=== PATIENT | female | born 1985 | race African-American/Black ===

== ENCOUNTER 2017-12-16 17:02 | Emergency (ER) | payer OTHER ==
--- NOTE | 2017-12-16 17:10 | PDOC ---
Rapid Medical Evaluation Time Seen by Provider: 12/16/17 17:06 Medical Evaluation: 12/16/17 17:06 I have performed a brief in-person evaluation of this patient. 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 Discharge Disposition - Diagnosis Low back pain - Referrals - Patient Instructions - Post Discharge Activity
[2017-12-16] MEDS ORDERED: ACETAMINOPHEN 325 MG TABLET (FP) PO ONE (17:12)
[2017-12-16 17:16] VITALS: BP 126/86; PULSE 112; TEMP 98.1; BMI 39.9
[2017-12-16] MEDS ORDERED: IBUPROFEN 600 MG TABLET (FP) PO ONE ×2 (17:50→17:55)
--- NOTE | 2017-12-16 17:54 | PDOC ---
History of Present Illness - General Chief Complaint: Back Pain Stated Complaint: BACK PAIN Time Seen by Provider: 12/16/17 17:06 History Source: Patient Exam Limitations: No Limitations - History of Present Illness Initial Comments: 12/16/17 17:49 Patient came for evaluation of low to mid back pain. 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 felt fine after the incident however over this past hours had a worsening of spasm and tenderness to her mid back and waistline where it's difficult for her to sit. Denies numbness or tingling to toes or hands, no history of back injury. Occurred: reports: this afternoon Severity: reports: mild Pain Location: reports: back Method of Injury: Yes: other (HEAVY ) Modifying Factors: improves with: None Loss of Consciousness: no loss of consciousness Associated Symptoms (Fall): denies symptoms Past History - Past Medical History Allergies/Adverse Reactions: Allergies Allergy/AdvReac Type Severity Reaction Status Date / Time No Known Allergies Allergy Verified 12/16/17 17:07 Home Medications: Ambulatory Orders No Home Medications 0 dose .ROUTE UTDICT 06/03/13 Cyclobenzaprine HCl 10 mg PO Q8H PRN #14 tablet 12/16/17 COPD: No Other medical history: DENIES. - Suicide/Smoking/Psychosocial Hx Smoking Status: No Smoking History: Current some day smoker Have you smoked in the past 12 months: Yes Number of Cigarettes Smoked Daily: 0 Information on smoking cessation initiated: No *Physical Exam - Vital Signs Last Vital Signs Temp Pulse Resp BP Pulse Ox 98.1 F 112 H 19 126/86 99 12/16/17 17:07 12/16/17 17:07 12/16/17 17:07 12/16/17 17:07 12/16/17 17:07 - Physical Exam General Appearance: Yes: Nourished, Appropriately Dressed, Apparent Distress HEENT: positive: IFRAH, Normal ENT Inspection, TMs Normal, Pharynx Normal Neck: positive: Supple. negative: Lymphadenopathy (R), Lymphadenopathy (L) Respiratory/Chest: positive: Lungs Clear, Normal Breath Sounds Gastrointestinal/Abdominal: positive: Soft. negative: Tender Musculoskeletal: positive: Decreased Range of Motion (mild decreased range of motion with flexion and extension at waist, has palpable spasm bilaterally worse on the left than the right extending from lower trapezius and through lumbar paravertebral spinous muscles. No crepitus or step-offs along spine, neurovascular intact to feet.), Muscle Spasm Extremity: positive: Normal Capillary Refill, Normal Range of Motion Integumentary: positive: Dry, Warm, Pale Neurologic: positive: paste up artist II-XII NML intact, Fully Oriented, Alert, Normal Mood/ Affect, Normal Response, Motor Strength 02/20 ED Treatment Course - Medications Given in the ED: ED Medications Discontinued Medications Generic Name Dose Route Start Last Admin Trade Name Freq PRN Reason Stop Dose Admin Acetaminophen 975 mg 12/16/17 17:12 12/16/17 17:16 Tylenol - PO 12/16/17 17:13 975 mg ONCE ONE Administration Progress Note - Progress Note Progress Note: Back strain, will treat with NSAIDs and cyclobenzaprine *DC/Admit/Observation/Transfer Diagnosis at time of Disposition: Low back pain Qualifiers: Chronicity: acute Back pain laterality: bilateral Sciatica presence: without sciatica Qualified Code(s): M54.5 - Low back pain - Discharge Dispostion Disposition: HOME Condition at time of disposition: Stable Admit: No - Prescriptions Prescriptions: Cyclobenzaprine HCl 10 mg PO Q8H PRN #14 tablet PRN Reason: spasm - Referrals Referrals: Kristina Abreu [Primary Care Provider] - - Patient Instructions Printed Discharge Instructions: DI for Low Back Pain Additional Instructions: Rest, no heavy lifting or exercise until pain is resolved Hot soaks to neck and low back as often as possible/hot showers or Jacuzzis No massage or therapy until spasm is gone Continue ibuprofen 2-200 mg tablets every 6 hours for the next 3 days then as needed for pain and swelling Cyclobenzaprine 1-10mg every 8 hours as needed for spasm If not significant improvement within 24 hours with medication and rest regime, followup with private physician for change in medications and /or therapy. - Post Discharge Activity Forms/Work/School Notes: Back to Work
[2017-12-16] MEDS ORDERED: CYCLOBENZAPRINE HCL 10 MG TABLET (FP) ONE (18:18)
== END 2017-12-16 18:14 | disposition home or self-care (01) ==
LOC: JERFT 17:02
DX: M54.5 Low back pain (principal); X50.0XXA Overexertion from strenuous movement or load, initial encounter; X50.9XXA Other and unspecified overexertion or strenuous movements or postures, initial encounter; Y93.F2 Activity, caregiving, lifting; Y92.89 Other specified places as the place of occurrence of the external cause; Y99.0 Civilian activity done for income or pay
CPT/HCPCS: 99281-25

== ENCOUNTER 2018-10-14 23:11 | Emergency (ER) | payer OTHER ==
[~2018-10-14 23:11] MED LIST: LIDOCAINE PATCH REMOVAL MC SCH
[2018-10-14 23:27] VITALS: BMI 31.6
--- NOTE | 2018-10-14 23:43 | PDOC ---
History of Present Illness - General Chief Complaint: Back Pain Stated Complaint: MONTANEZ 11B Time Seen by Provider: 10/14/18 23:38 History Source: Patient Exam Limitations: No Limitations - History of Present Illness Initial Comments: 10/14/18 23:38 33YOF with chronic low back pain 2/2 multilevel lumbar disc disease from work- related injury in 11/2017, had MRI 12/2017, follows with neurosurgeon, who was BIBEMS tonight for exacerbated chronic low back pain now radiating down her entire LLE and slightly down her RLE. She has not struggled with shooting leg pain like this before. Notes that about a week ago, she twisted to the left accidentally and aggravated the back pain. Initially it was severe but improved , now worse over the past 3 days and she notes being unable to walk. She has left lateral leg numbness/tingling, no urinary or bowel incontinence, saddle anesthesia, LOC, headache, neck pain, vision changes, lightheadedness, new abdominal pain, leg weakness, or other symptoms. Past History - Past Medical History Allergies/Adverse Reactions: Allergies Allergy/AdvReac Type Severity Reaction Status Date / Time No Known Allergies Allergy Verified 10/14/18 23:25 Home Medications: Ambulatory Orders No Home Medications 0 dose .ROUTE UTDICT 06/03/13 Amoxicillin/Potassium Clav [Augmentin 875-125 Tablet] 1 each PO BID 7 Days #14 tablet 06/26/18 Bacitracin/Polymyxin B Sulfate [Bacitracin-Polymyxin Ointment] 15 gm TP ACDIN 7 Days #30 oint...g. 06/26/18 Acetaminophen [Tylenol] 650 mg PO QID PRN #28 tablet 10/15/18 Cyclobenzaprine HCl [Flexeril 10 mg] 10 mg PO BID PRN #20 tablet 10/15/18 Ibuprofen [Motrin -] 600 mg PO QID #28 tablet 10/15/18 COPD: No DVT: No - Suicide/Smoking/Psychosocial Hx Smoking Status: No Smoking History: Never smoked Have you smoked in the past 12 months: No Number of Cigarettes Smoked Daily: 0 Information on smoking cessation initiated: No Hx Alcohol Use: No Drug/Substance Use Hx: No Substance Use Type: None Review of Systems - Review of Systems Able to Perform ROS?: Yes Comments:: GEN: no fever, chills, malaise, generalized weakness, or weight change HEENT: no ear pain, sore throat, vision change, or eye pain CV: no chest pain, palpitations, lightheadedness, syncope, or edema RESP: no cough, wheezing, or SOB GI: no abdominal pain, nausea, vomiting, diarrhea, constipation, or white/black/ bloody stool : no dysuria, hematuria, incontinence, retention, bleeding, or discharge MSK: back pain, LLE sciatica, no neck pain, no muscle weakness/pain, or joint swelling/pain NEURO: no headache, seizure, vertigo, numbness, tingling, or focal weakness PSYCH: no substance use, no behavior change SKIN: no jaundice, no rash ROS otherwise negative except as noted in HPI *Physical Exam - Vital Signs Last Vital Signs Temp Pulse Resp BP Pulse Ox 97.6 F 80 18 108/62 99 10/14/18 23:25 10/14/18 23:25 10/14/18 23:25 10/14/18 23:25 10/14/18 23:25 - Physical Exam Comments: 10/15/18 00:26 GENERAL: a bit uncomfortable but otherwise well-appearing, A/Ox4, no distress, answers questions appropriately, laying on right side in ED stretcher HEENT: PERRLA, EOMI, moist mucous membranes NECK/BACK: lumbar and sacral diffuse midline ttp, otherwise no spinal ttp, no spinal stepoff or deformity, no hematoma, neck supple CARDIOVASCULAR: regular rate/rhythm, normal S1S2, no MGR, strong peripheral pulses, capillary refill <2 seconds, extremities wwp, no edema LUNGS/RESPIRATORY: no respiratory distress, CTAB GI/ABDOMEN: symmetric ivxy-ct-iabn, normoactive BS, soft, no ttp, no midline pulsatile masses : no CVA tenderness EXTREMITIES: no muscle atrophy, no acute deformity, no edema SKIN: warm and dry, no pallor, no jaundice, no rash, no bruising, no skin breakdown, no cuts, no lesions NEUROLOGICAL: GCS 15, CN II-XII grossly intact, 5/5 strength proximally and distally including BLE, no facial droop, gait not tested initially Moderate Sedation - Procedure Monitoring Vital Signs: Procedure Monitoring Vital Signs Temperature 97.6 F 10/14/18 23:25 Pulse Rate 80 10/14/18 23:25 Respiratory Rate 18 10/14/18 23:25 Blood Pressure 108/62 10/14/18 23:25 O2 Sat by Pulse Oximetry (%) 99 10/14/18 23:25 Medical Decision Making - Medical Decision Making 10/14/18 23:44 Pt with h/o with chronic back pain p/w acute exacerbation of same chronic back pain but now with LLE sciatica. No new red flag symptoms (see HPI). Initial Vital Signs Temp Pulse Resp BP Pulse Ox 97.6 F 80 18 108/62 99 10/14/18 23:25 10/14/18 23:25 10/14/18 23:25 10/14/18 23:25 10/14/18 23:25 Exam: As noted in Physical Exam section. DDX IBNLT: DDD, DJD, osteophyte, compression fxr, other vertebral or spinous process fxr; much LL malignancy (i.e. multiple myeloma), spinal epidural abscess , epidural hematoma, meningitis, or other more concerning etiology. W/U ordered: urine hCG to determine if she can have NSAIDs TX ordered: valium 2 mg PO 10/15/18 02:09 Patient received partial relief with valium. She will not give urine sample for hCG. States she knows she is not , just ended her normal LMP. Requests NSAIDs and understands normal protocol is to check first. She understands the risks of NSAIDs, insists not , requests Toradol. I placed the order for IM Toradol 10/15/18 03:33 Patient walking to vending machine and bathroom. States pain is much better, still present, requests Tylenol. I have placed order for 975 mg Tylenol PO with Maalox at her request. Will re-assess after Tylenol, at this time the patient does feel comfortable going home. She states she will be able to f/u with PCP and neurosurgery. She does request new neurosurgeon and I have placed referral info. Repeat VS: DISCHARGE The Pt has gotten significant relief of symptoms while in the ED. They are appropriate for discharge with close outpatient follow up. The Pt is comfortable with this plan and will follow up with their primary care provider in 1-3 days. They are counseled on importance of proactive pain management and neurosurgery follow up. Specific return precautions are discussed and they will come back to the ER if necessary. *DC/Admit/Observation/Transfer Diagnosis at time of Disposition: Low back pain Qualifiers: Chronicity: unspecified Back pain laterality: midline Sciatica presence: with sciatica Sciatica laterality: sciatica of left side Qualified Code(s): M54.42 - Lumbago with sciatica, left side - Discharge Dispostion Disposition: HOME Condition at time of disposition: Stable Decision to Admit order: No - Prescriptions Prescriptions: Acetaminophen [Tylenol] 650 mg PO QID PRN #28 tablet PRN Reason: Back Pain Cyclobenzaprine HCl [Flexeril 10 mg] 10 mg PO BID PRN #20 tablet PRN Reason: Back Pain Ibuprofen [Motrin -] 600 mg PO QID #28 tablet - Referrals Referrals: Miki Viramontes MD, FAANS [Staff Physician] - - Patient Instructions Printed Discharge Instructions: DI for Low Back Pain Additional Instructions: You were seen in the ER for an acute flare-up of your back pain. We gave you an injection of toradol which helped with your pain. We are giving you referral information for one of our neurosurgeons; please follow up with them or with your own neurosurgeon. Please also follow up with your primary care provider in 1-3 days. Call their clinic as soon as possible, tell them you were seen in the ER for back pain, and tell them you need an appointment. If you have any new or worsening symptoms please come back to the ER at any time (24 hours a day), especially for fever, new numbness, new tingling new weakness, new urinary or bowel incontinence or retention, or other new symptoms. If you are having severe or life threatening symptoms, or symptoms that make it unsafe to drive or have someone drive you, please call 911. Please take the Flexeril muscle relaxer as needed for muscle spasm. Also use the following home pain medication regimen: Early in the morning, take Motrin 600 mg. 3 hours later, take Tylenol 650 mg. 3 hours later, take Motrin 600 mg again. 3 hours later, take Tylenol 650 mg again. You should also take a medication to reduce stomach irritation, like Maalox. - Post Discharge Activity Forms/Work/School Notes: Back to Work
--- NOTE | 2018-10-14 23:47 | PDOC ---
Attending Attestation - Resident Resident Name: Carrie Camargo - ED Attending Attestation I have performed the following: I have examined & evaluated the patient, The case was reviewed & discussed with the resident, I agree w/resident's findings & plan, Exceptions are as noted - HPI HPI: 10/15/18 00:19 33y F hx of herniated discs presenst with back pain. Pt states approx 1 week ago , she turned and since then has been feeling recurrent back pain that radiates down her L leg. Pt endorses worsening of the pain with certain movements. denies any urinary/bowel incontinence,f everc/chills, weakness. states the pain is best when she is in a position laying on her right side, and is worse when she is laying on her left or flat on her back. no recent falls/injuries. denies IVDU takes motrin occasionally without significant relief - Physicial Exam PE: 10/15/18 00:21 General: no acute distress BACK/MSK: mild ttp to L lumbar paraspinal region, +ttp to suprioer L buttock, + SLR on L leg, sensation intact, motor symmetric, muscle bulk symmetric - Medical Decision Making 10/14/18 23:46 suspect sciatica will treat with trauamdol and muscle relaxant no red flags for cord compression
[2018-10-14] MEDS ORDERED: diazePAM 5 MG TABLET PO ONE (23:51)
[2018-10-14] MEDS ORDERED: LIDOCAINE 5% TOPICAL PATCH TP ONE (23:52)
[2018-10-15] MEDS ORDERED: CYCLOBENZAPRINE HCL 10 MG TABLET (FP) PO ONE (00:23)
[2018-10-15] MEDS ORDERED: diazePAM 2 MG TABLET ONE (00:27)
[2018-10-15] MEDS ORDERED: LIDOCAINE 5% TOPICAL PATCH ONE (00:27)
[2018-10-15] MEDS ORDERED: diazePAM 5 MG TABLET PO ONE (00:44)
[2018-10-15] MEDS ORDERED: KETOROLAC TROMETHAMINE 30 MG/1 ML VIAL IM ONE (02:09)
[2018-10-15] MEDS ORDERED: KETOROLAC TROMETHAMINE 30 MG/1 ML VIAL ONE (02:10)
[2018-10-15] MEDS ORDERED: MAG HYDROX/AL HYDROX/SIMETH 30 ML UNIT-DOSE CUP PO ONE (03:33)
[2018-10-15] MEDS ORDERED: ACETAMINOPHEN 500 MG TABLET (FP) PO ONE (03:33)
[2018-10-15] MEDS ORDERED: ACETAMINOPHEN 325 MG TABLET (FP) ONE (04:11)
[2018-10-15] MEDS ORDERED: MAG HYDROX/AL HYDROX/SIMETH 30 ML UNIT-DOSE CUP ONE (04:12)
[2018-10-15 04:35] VITALS: BP 118/71; PULSE 82; TEMP 98.3
== END 2018-10-15 06:59 | disposition home or self-care (01) ==
LOC: JER 23:11
PROC: 3E0233Z Introduction of Anti-inflammatory into Muscle, Percutaneous Approach (ICD-10-PCS; principal; 2018-10-14)
DX: M54.42 Lumbago with sciatica, left side (principal)
CPT/HCPCS: 99281-25

== ENCOUNTER 2018-10-31 05:13 | Emergency (ER) | payer OTHER ==
[2018-10-31 05:18] VITALS: TEMP 98.2; BMI 31.5
[2018-10-31] MEDS ORDERED: RANITIDINE HCL 150 MG TABLET (FP) PO ONE (07:26)
[2018-10-31] MEDS ORDERED: MAG HYDROX/AL HYDROX/SIMETH 30 ML UNIT-DOSE CUP PO ONE (07:26)
[2018-10-31] MEDS ORDERED: ACETAMINOPHEN 325 MG TABLET (FP) PO ONE (07:27)
--- NOTE | 2018-10-31 07:31 | PDOC ---
History of Present Illness - General Chief Complaint: Back Pain Stated Complaint: ABDOMINAL PAIN Time Seen by Provider: 10/31/18 07:08 History Source: Patient Exam Limitations: No Limitations - History of Present Illness Initial Comments: 33 yo F w a pmh of PUD, GERD and chronic low back pain 2/2 multilevel lumbar disc disease from work-related injury in 11/2017, had MRI 12/2017, follows with neurosurgeon, who was BIBEMS presents to the ER with 3 weeks of lower back pain and a month of epigastric abdominal discomfort. She states she has been seen in this hospital on multiple occasions for these same reasons. Her back pain radiates down her LLE and she states it is very difficult for her to walk. She has left lateral leg numbness/tingling, no urinary or bowel incontinence, saddle anesthesia, LOC, headache, neck pain, vision changes, lightheadedness, leg weakness, or other symptoms. Her abdominal pain feels like acid is going up her throat and she has no desire to eat. She was supposed to have an appointment with Dr. Reis but couldn't attend because it was too painful for her to walk. She denies recent fevers, chills, infections, chest pain, SOB, diffixulty breathing, dysuria, frequency, or urgency. PCP: Dr. Mack Drug Clerk: Dr. Reis Allergies: Cipro, flagyl Social Hx: Occasional smoker, recreactional drinker, denies other substance usage. PSH: None reported. Past History - Past Medical History Allergies/Adverse Reactions: Allergies Allergy/AdvReac Type Severity Reaction Status Date / Time No Known Allergies Allergy Verified 10/31/18 05:17 Home Medications: Ambulatory Orders No Home Medications 0 dose .ROUTE UTDICT 06/03/13 Amoxicillin/Potassium Clav [Augmentin 875-125 Tablet] 1 each PO BID 7 Days #14 tablet 06/26/18 Bacitracin/Polymyxin B Sulfate [Bacitracin-Polymyxin Ointment] 15 gm TP ACDIN 7 Days #30 oint...g. 06/26/18 Acetaminophen [Tylenol] 650 mg PO QID PRN #28 tablet 10/15/18 Cyclobenzaprine HCl [Flexeril 10 mg] 10 mg PO BID PRN #20 tablet 10/15/18 Ibuprofen [Motrin -] 600 mg PO QID #28 tablet 10/15/18 COPD: No DVT: No - Suicide/Smoking/Psychosocial Hx Smoking Status: No Smoking History: Never smoked Have you smoked in the past 12 months: No Number of Cigarettes Smoked Daily: 0 Information on smoking cessation initiated: No Hx Alcohol Use: No Drug/Substance Use Hx: No Substance Use Type: None Review of Systems - Review of Systems Able to Perform ROS?: Yes Comments:: CONSTITUTIONAL: Absent: fever, no chills, no fatigue EYES: Absent: visual changes ENT: Absent: ear pain, no sore throat CARDIOVASCULAR: Absent: chest pain, no palpitations RESPIRATORY: Absent: cough, no SOB GI: Present: Abdominal pain Absent: no nausea, no vomiting, no constipation, no diarrhea GENITOURINARY: Absent: dysuria, no frequency, no hematuria MUSKULOSKELETAL: Present: Back pain, arthralgia Absent: no myalgia SKIN: Absent: rash NEURO: Absent: headache *Physical Exam - Vital Signs Last Vital Signs Temp Pulse Resp BP Pulse Ox 98.2 F 86 18 121/76 98 10/31/18 05:30 10/31/18 05:30 10/31/18 05:30 10/31/18 05:30 10/31/18 05:30 - Physical Exam Comments: GENERAL: Well-appearing, well-nourished. No apparent distress. HEENT: Normocephalic, atraumatic. PERRL, EOM intact. CARDIOVASCULAR: Normal S1, S2. Regular rate and rhythm. PULMONARY: Clear to auscultation bilaterally. ABDOMEN: There is epigastric TTP. Normal bowel sounds, abdomen is soft, non-distended, no guarding or rebound. EXTREMITIES: Normal ROM in all four extremities. No gross deformities. SKIN: Warm, dry. No rash NEUROLOGICAL: No focal neurological deficits. Moderate Sedation - Procedure Monitoring Vital Signs: Procedure Monitoring Vital Signs Temperature 98.2 F 10/31/18 05:30 Pulse Rate 86 10/31/18 05:30 Respiratory Rate 18 10/31/18 05:30 Blood Pressure 121/76 10/31/18 05:30 O2 Sat by Pulse Oximetry (%) 98 10/31/18 05:30 Medical Decision Making - Medical Decision Making 33 yo F w a pmh of PUD, GERD and chronic low back pain 2/2 multilevel lumbar disc disease from work-related injury in 11/2017, had MRI 12/2017, follows with neurosurgeon, who was MARELY presents to the ER with 3 weeks of lower back pain and a month of epigastric abdominal discomfort. DDx IBNLT: PUD, GERD, Sciatica, ACS/[place]. Plan: GI cocktail, EKG, re-assess. I believe this patient's current illness is the same one she has been her for many times - her sciatica and PUD/GERD symtpoms. The most important step moving forward is getting her a GI follow up and an endoscopy. She states she will follow up with Dr. Christopher BRAVO. Patient feels better after GI cocktail and is seen walking around the ED. Will DC with PCP and gastro follow up. *DC/Admit/Observation/Transfer Diagnosis at time of Disposition: Low back pain, Anxiety, Dyspepsia - Discharge Dispostion Disposition: HOME Condition at time of disposition: Stable Decision to Admit order: No - Referrals Referrals: Rommel Reis MD [Staff Physician] - Oc Diallo MD [Non Staff, Medical] - - Patient Instructions Printed Discharge Instructions: DI for Peptic Ulcer, Gastroesophageal Reflux Disease (Alternative Therapy), Heartburn -- Overview, DI for Gastroesophageal Reflux Disease (GERD) -- Child, DI for Gastroesophageal Reflux Disease (GERD) Additional Instructions: You came into the ER with abdominal pain and leg pain. We gave you some meds for the abdominal pain which helped and made you feel better. IT IS EXTREMELY IMPORTANT FOR YOU TO SCHEDULE AND SEE YOUR BONDING MOLDER - DR. CHRISTOPHER BRAVO. HE IS LOOKING FORWARD TO HELPING YOU WITH YOUR STOMACH PROBLEMS. Come back to the ER if your pain worsens, you start vomiting, have severe pain, or any other new or worsening concerns. Thank you for coming to the [facility] ER. We hope you feel better soon! Print Language: FRENCH - Post Discharge Activity
[2018-10-31] MEDS ORDERED: METHOCARBAMOL 500 MG TABLET PO ONE (07:40)
--- NOTE | 2018-10-31 08:38 | PDOC ---
Attending Attestation - Resident Resident Name: Silviano Peck - ED Attending Attestation I have performed the following: I have examined & evaluated the patient, The case was reviewed & discussed with the resident, I agree w/resident's findings & plan, Exceptions are as noted - HPI HPI: 33 yo F with history of GERD, presenting with stomach upset (likely gastric irritation from drinking beer last night) and low bck pain. Stomach pain is similar to prior episodes with her GERD. Worse with PO intake. She did not take anything for pain. Back pain is similar to prior sciatica pain. She has not been following up with a surgeon, stating she is concerned they may recommend surgery. She has been mostly lying in bed for the past month due to pain. She typically takes NSAIDs for pain. - Physicial Exam PE: GENERAL: Awake, alert, and fully oriented, in no acute distress HEAD: No signs of trauma EYES: PERRLA, EOMI, sclera anicteric, conjunctiva clear ENT: Auricles normal inspection, hearing grossly normal, nares patent, oropharynx clear without exudates. Moist mucosa NECK: Normal ROM, supple, no lymphadenopathy, JVD, or masses LUNGS: Breath sounds equal, clear to auscultation bilaterally. No wheezes, and no crackles HEART: Regular rate and rhythm, normal S1 and S2, no murmurs, rubs or gallops ABDOMEN: Soft, nontender, normoactive bowel sounds. No guarding, no rebound. No masses EXTREMITIES: Normal range of motion, no edema. No clubbing or cyanosis. No cords, erythema, or tenderness NEUROLOGICAL: Cranial nerves II through XII grossly intact. Normal speech. Motor intact. Sensation decreased to L lower leg. SKIN: Warm, Dry, normal turgor, no rashes or lesions noted. SPINE: +Midline tenderness L3-5 region. +Lumbar paraspinal soft tissue tenderness to L side. - Medical Decision Making Pt reported improvement with muscle relaxer and tylenol (will avoid NSAIDs due to gastric side effects). Stable for DC home. Encouraged her to f/u with automotive alignment specialist in light of the changes in sensation (she has been following up with pain mgmt and has not improved).
[2018-10-31] MEDS ORDERED: RANITIDINE HCL 150 MG TABLET (FP) ONE (08:47)
[2018-10-31] MEDS ORDERED: METHOCARBAMOL 500 MG TABLET ONE (08:47)
[2018-10-31] MEDS ORDERED: ACETAMINOPHEN 325 MG TABLET (FP) ONE (08:47)
[2018-10-31] MEDS ORDERED: MAG HYDROX/AL HYDROX/SIMETH 30 ML UNIT-DOSE CUP ONE (08:48)
[2018-10-31 10:19] VITALS: BP 118/72; PULSE 74
--- NOTE | 2018-10-31 12:25 | EKG ---
Test Reason : Blood Pressure : / mmHG Vent. Rate : 069 BPM Atrial Rate : 069 BPM P-R Int : 132 ms QRS Dur : 090 ms QT Int : 424 ms P-R-T Axes : 036 020 005 degrees QTc Int : 454 ms NORMAL SINUS RHYTHM NORMAL ECG WHEN COMPARED WITH ECG OF 02-JAN-2018 01:01, NO SIGNIFICANT CHANGE WAS FOUND Confirmed by HERACLIO POSADAS MD ([id number]) on 10/31/2018 12:24:24 PM Referred By: Confirmed By:HERACLIO POSADAS MD
== END 2018-10-31 10:16 | disposition home or self-care (01) ==
LOC: JER 05:13
DX: K21.9 Gastro-esophageal reflux disease without esophagitis (principal); K27.9 Peptic ulcer, site unspecified, unspecified as acute or chronic, without hemorrhage or perforation; M51.36 Other intervertebral disc degeneration, lumbar region
CPT/HCPCS: 93005; 93010; 99282-25

== ENCOUNTER 2019-06-30 05:53 | Emergency (ER) | payer OTHER ==
[2019-06-30 06:03] VITALS: BMI 28.3
--- NOTE | 2019-06-30 07:18 | PDOC ---
History of Present Illness - General Chief Complaint: Back Pain Stated Complaint: BACK PAIN Time Seen by Provider: 06/30/19 07:18 Past History - Past Medical History Allergies/Adverse Reactions: Allergies Allergy/AdvReac Type Severity Reaction Status Date / Time No Known Allergies Allergy Verified 06/30/19 06:04 Home Medications: Ambulatory Orders No Home Medications 0 dose .ROUTE UTDICT 06/03/13 Cyclobenzaprine HCl [Flexeril -] 10 mg PO HS #7 tablet 06/30/19 COPD: No DVT: No - Suicide/Smoking/Psychosocial Hx Smoking Status: No Smoking History: Current some day smoker Have you smoked in the past 12 months: Yes Number of Cigarettes Smoked Daily: 3 Information on smoking cessation initiated: No Hx Alcohol Use: No Drug/Substance Use Hx: No Substance Use Type: None *Physical Exam - Vital Signs Last Vital Signs Temp Pulse Resp BP Pulse Ox 98.3 F 80 107/72 100 06/30/19 06:01 06/30/19 06:01 06/30/19 06:01 06/30/19 06:01 Medical Decision Making - Medical Decision Making HPI: 34yo F with PMH of PUD, GERD and chronic low back pain due to multilevel lumbar disc disease from work-related injury in 11/2017, had MRI 12/2017, who was BIBEMS presents to the ER with a "back spasm." She states she has had a cough which has caused to wrench her back causing her baseline back pain to worsen. Patient also complaining of acid reflux and feels she is unable to take pills. She denies recent fevers, chills, chest pain, or shortness of breath. No urinary symptoms or history of nephrolithiasis. Pain is rated 100 out of 10. States her pain is so severe that she cannot walk. No red flag back symptoms: no urinary/ stool incontinence, no saddle anesthesia. PCP: Dr. Mack Photoengraving Apprentice: Dr. Reis ROS: Constitutional: no fever, no chills HEENT: no throat pain, no dysphagia Cardiovascular: no chest pain, no palpitations Respiratory: no cough, no shortness of breath Gastrointestinal: no abdominal pain, no melena Genitourinary: no dysuria, no hematuria Musculoskeletal: +back pain, +leg pain Skin: no rash, no itching Neurologic: no headache, no weakness PE: General: Awake, alert, and fully oriented, laying in position Head: No signs of trauma Eyes: EOMI, sclera anicteric ENT: Moist mucus membranes Neck: Normal ROM, supple Lungs: Lungs clear, Normal breath sounds Cardio: Regular rhythm, S1 and S2 present Abdomen: Soft, nontender. No guarding, no rebound, no masses Extremities: Normal range of motion, Distal pulses present SKIN: Warm, Dry, normal turgor Neurologic: Cranial nerves II through XII grossly intact. Normal speech Back: Tender to palpation in lumbar area, midline, no step-offs/deformities/ fluctuance; no overlying wound or lesion; positive straight leg test bilaterally ED Course/MDM: DDX including but not limited to MSK, cauda equina, UTI, pyelonephritis, nephrolithiasis UA, UCx, Urine test Discussed with patient the need for a test before giving her certain medications. We rodríguez start with Ofirmev. Patient requests IV insertion as she feels she cannot take pills due to her GI symptoms. We will also order protonix and pepcid for her acid reflux. 06/30/19 07:18 Upon reassessment, patient found in stretcher looking at her phone. She states her back pain is exactly the same. GI symptoms have improved. Patient declining flexeril at this time as it makes her drowsy We will give her robaxin 06/30/19 08:31 Upon reassessment, patient again found in stretcher looking at her phone, does not appear to be in discomfort until approached by provider. Patient says she has still has no relief from her back pain. Flexeril ordered. 06/30/19 12:22 Patient additionally received toradol for her pain. Discharged with return precautions. *DC/Admit/Observation/Transfer Diagnosis at time of Disposition: Low back pain Qualifiers: Chronicity: unspecified Back pain laterality: unspecified Sciatica presence: with sciatica Sciatica laterality: bilateral sciatica Qualified Code(s): M54.42 - Lumbago with sciatica, left side - Discharge Dispostion Disposition: HOME Condition at time of disposition: Improved - Prescriptions Prescriptions: Cyclobenzaprine HCl [Flexeril -] 10 mg PO HS #7 tablet - Referrals Referrals: Oc Diallo MD [Primary Care Provider] - - Patient Instructions Printed Discharge Instructions: DI for Low Back Pain Additional Instructions: You came to the emergency department for back pain. Muscle relaxant prescription sent to your pharmacy. Take as instructed. Do not drive or take care of small children while taking this medication. It is important to follow up with your primary care doctor this week to discuss this visit and further assess your symptoms. Call and make an appointment. Your workup is not complete until you do so. Immediate medical attention is required if you have back pain and : numbness in the genital or rectal area, loss of bowel or bladder control, difficulty with urination; fever, unexplained weight loss, or other signs of illness or infection. If you think you are having an emergency, call for emergency medical services or present to the emergency department right away. - Post Discharge Activity
[2019-06-30] MEDS ORDERED: FAMOTIDINE 20 MG/50 ML IVPB 20 MG/50 ML MG IVPB ONE ×2 (08:01→08:16)
[2019-06-30] MEDS ORDERED: PANTOPRAZOLE SODIUM 40 MG VIAL IVPUSH ONE (08:01)
[2019-06-30] MEDS ORDERED: LIDOCAINE 5% TOPICAL PATCH TP ONE (08:01)
[2019-06-30] MEDS ORDERED: ACETAMINOPHEN 1000 MG/100 ML VIAL (NON FORMULARY) IVPB ONE (08:02)
[2019-06-30] MEDS ORDERED: ACETAMINOPHEN INJECTION 100 ML IVPB ONE (08:15)
[2019-06-30] MEDS ORDERED: LIDOCAINE 5% TOPICAL PATCH ONE (08:15)
[2019-06-30] MEDS ORDERED: PANTOPRAZOLE SODIUM 40 MG VIAL ONE (08:16)
[2019-06-30] MEDS ORDERED: SODIUM CHLORIDE 0.9% 500 ML INFUS.BAG IV ONE (08:28)
--- NOTE | 2019-06-30 09:27 | PDOC ---
Attending Attestation - Resident Resident Name: Michaela Kang - ED Attending Attestation I have performed the following: I have examined & evaluated the patient, The case was reviewed & discussed with the resident, I agree w/resident's findings & plan - HPI HPI: 06/30/19 09:25 34-year-old female with history of recurring low back pain from prior injury presents now with nontraumatic low back pain since last night. Patient has had slight cough with URI, states she coughed forcefully and felt a strain in her low back, which has been persistent since last night. Nonradiating and without any bowel/bladder/lower extremity numbness or weakness. Usually takes Motrin with relief of her symptoms, did not take anything this time and presents for evaluation. No urinary complaints, no injury, no fevers or chills. Has been undergoing extensive workup for nonspecific GI complaints, under care of Dr. Reis but no acute complaints today. - Physicial Exam PE: 06/30/19 09:26 Vital signs stable Well-appearing lying in stretcher No midline tenderness or step-off or deformity, positive paraspinal discomfort to palpation without bruising or swelling Abdomen is benign without focal tenderness No CVA tenderness 5 out of 5 flexion and extension of bilateral hips/knees/ankle/toes. - Medical Decision Making 06/30/19 09:27 34-year-old female with history of low back pain presents with nontraumatic exacerbation of her low back pain, localized and without red flags on history or physical exam. No indication for emergent imaging Pain control Reassess
[2019-06-30 09:45] LABS: EPI CELLS 22.7 /HPF (0-5/HPF); HYALINE CASTS 13 /lpf (0-8); PH,URINE 6.5 (5.0-8.0); URINE APPEARANCE CLOUDY; URINE BACTERIA 646.3 /hpf (NEGATIVE); URINE BILIRUBIN NEGATIVE (NEGATIVE); URINE COLOR YELLOW; URINE GLUCOSE (UA) NEGATIVE (NEGATIVE); URINE KETONE TRACE (NEGATIVE); URINE LEUK ESTERASE TRACE (NEGATIVE); URINE NITRITE NEGATIVE (NEGATIVE); URINE PROTEIN NEGATIVE (NEGATIVE); URINE RBC 2 /hpf (0-4); URINE WBC 6 /hpf (0-5)
[2019-06-30] MEDS ORDERED: METHOCARBAMOL 500 MG TABLET PO ONE (09:56)
[2019-06-30] MEDS ORDERED: KETOROLAC TROMETHAMINE 30 MG/1 ML VIAL IVPUSH ONE (10:23)
[2019-06-30] MEDS ORDERED: METHOCARBAMOL 500 MG TABLET ONE (10:24)
[2019-06-30] MEDS ORDERED: KETOROLAC TROMETHAMINE 30 MG/1 ML VIAL ONE (10:24)
[2019-06-30] MEDS ORDERED: diazePAM CARPU-JECT 10 MG/2 ML DISP.SYRIN IVPUSH ONE (12:42)
[2019-06-30] MEDS ORDERED: CYCLOBENZAPRINE HCL 10 MG TABLET (FP) PO ONE ×2 (13:53→15:00)
[2019-06-30] MEDS ORDERED: CYCLOBENZAPRINE HCL 10 MG TABLET (FP) ONE ×2 (13:57→15:20)
[2019-06-30 14:13] VITALS: BP 116/77; PULSE 75; TEMP 98.2
[2019-06-30] MEDS ORDERED: IBUPROFEN 600 MG TABLET (FP) PO ONE (16:41)
[2019-06-30] MEDS ORDERED: LIDOCAINE PATCH REMOVAL MC SCH (22:00)
[2019-07-01] MEDS ORDERED: CYCLOBENZAPRINE HCL 5 MG TABLET PO ONE (13:46)
== END 2019-06-30 15:24 | disposition home or self-care (01) ==
LOC: JER 05:53
PROC: 3E033GC Introduction of Other Therapeutic Substance into Peripheral Vein, Percutaneous Approach (ICD-10-PCS; principal; 2019-06-30)
PROC: 3E033NZ Introduction of Analgesics, Hypnotics, Sedatives into Peripheral Vein, Percutaneous Approach (ICD-10-PCS; 2019-06-30)
PROC: 3E0333Z Introduction of Anti-inflammatory into Peripheral Vein, Percutaneous Approach (ICD-10-PCS; 2019-06-30)
PROC: 3E0337Z Introduction of Electrolytic and Water Balance Substance into Peripheral Vein, Percutaneous Approach (ICD-10-PCS; 2019-06-30)
DX: M54.42 Lumbago with sciatica, left side (principal); G89.29 Other chronic pain; K21.9 Gastro-esophageal reflux disease without esophagitis
CPT/HCPCS: 81003; 84703; 87086; 99283-25; J0131

== ENCOUNTER 2019-07-27 22:33 | Emergency (ER) | payer OTHER ==
[2019-07-27 23:15] VITALS: BP 124/74; PULSE 92; TEMP 97.6; BMI 28.1
[2019-07-27] MEDS ORDERED: MAG HYDROX/AL HYDROX/SIMETH -MYLANTA- ORAL SUSPENSION PO ONE (23:25)
[2019-07-27] MEDS ORDERED: MAG HYDROX/AL HYDROX/SIMETH 30 ML UNIT-DOSE CUP ONE (23:43)
[2019-07-27] MEDS ORDERED: hydrOXYzine PAMOATE 25 MG CAPSULE (FP) PO ONE (23:55)
[2019-07-27] MEDS ORDERED: SIMETHICONE 80 MG TAB.CHEW (FP) PO ONE (23:55)
--- NOTE | 2019-07-28 00:01 | PDOC ---
History of Present Illness - General Chief Complaint: Psychiatric Stated Complaint: DIFFICULTY BREATHING Time Seen by Provider: 07/27/19 23:09 History Source: Patient Exam Limitations: No Limitations - History of Present Illness Initial Comments: 07/28/19 00:01 Maddy Last is a 34yF w PMHx depression, anxiety, GERD presenting w SOB. 3hrs ago, pt was arguing w ex boyfriend with sudden onset SOB, heart palpitations, diffuse AB pain. Lost consciousnessx3, hit head on ground witnessed by neighbours waiting for cab to hospital. Has had frequent panic attacks for past month d/t anxiety. Has been seen by Dr Reis for AB pain workup (included EGD), attributed to reflux. Denies fever, headache, chest pain , urinary/bowel movement changes Past History - Past Medical History Allergies/Adverse Reactions: Allergies Allergy/AdvReac Type Severity Reaction Status Date / Time No Known Allergies Allergy Verified 07/27/19 23:10 Home Medications: Ambulatory Orders Cyclobenzaprine HCl [Flexeril -] 10 mg PO HS #10 tablet 07/01/19 Ibuprofen 600 mg PO Q6H #30 tablet 07/01/19 Hydroxyzine HCl 25 mg PO PRN #10 tablet 07/28/19 COPD: No DVT: No GI Disorders: Yes (GERD) - Psycho Social/Smoking Cessation Hx Smoking Status: No Smoking History: Never smoked Have you smoked in the past 12 months: Yes Number of Cigarettes Smoked Daily: 3 Information on smoking cessation initiated: No Hx Alcohol Use: No Drug/Substance Use Hx: No Substance Use Type: None Review of Systems - Review of Systems Constitutional: No: Chills, Fever HEENTM: No: Eye Pain, Nose Pain, Throat Pain, Mouth Pain Respiratory: Yes: Shortness of Breath. No: Cough Cardiac (ROS): Yes: Palpitations. No: Chest Pain, Syncope ABD/GI: No: Abdominal Distended, Constipated, Diarrhea, Nausea, Vomiting : No: Burning, Dysuria, Discharge, Flank Pain, Hematuria, Incontinence Musculoskeletal: No: Back Pain, Joint Pain, Muscle Pain, Neck Pain Integumentary: No: Bruising, Flushing, Lesions Neurological: No: Headache, Seizure, Tingling, Tremors Psychiatric: Yes: Stressors. No: Anxiety, Depression Endocrine: Yes: Unexplained Weight Loss. No: Excessive Sweating, Flushing, Intolerance to Cold, Intolerance to Heat Hematologic/Lymphatic: No: Anemia, Blood Clots *Physical Exam - Vital Signs Last Vital Signs Temp Pulse Resp BP Pulse Ox 97.6 F 92 H 20 124/74 99 07/27/19 23:11 07/27/19 23:11 07/27/19 23:11 07/27/19 23:11 07/27/19 23:11 - Physical Exam General Appearance: Yes: Nourished, Appropriately Dressed, Moderate Distress ( anxious) HEENT: positive: EOMI, IFRAH, Normal Voice, Hearing Grossly Normal. negative: Nasal Congestion, Rhinorrhea Respiratory/Chest: positive: Lungs Clear, Normal Breath Sounds, Rapid RR. negative: Chest Tender, Crackles, Rales, Rhonchi, Stridor, Wheezing Cardiovascular: positive: Regular Rhythm, Regular Rate, S1, S2. negative: Edema , Murmur Gastrointestinal/Abdominal: positive: Normal Bowel Sounds, Flat, Soft. negative : Tender, Organomegaly Extremity: positive: Normal Capillary Refill Integumentary: positive: Normal Color Neurologic: positive: switchboard operator assistant II-XII NML intact, Fully Oriented, Alert, Normal Response, Responsive. negative: Normal Mood/Affect (anxious), Sensory Deficit, Confused, Disoriented ED Treatment Course - LABORATORY CBC & Chemistry Diagram: 07/28/19 01:02 07/28/19 01:02 - RADIOLOGY Radiology Studies Ordered: Category Date Time Status HEAD CT WITHOUT CONTRAST [CT] Stat CT Scan 07/27/19 23:43 Ordered CHEST PA & LAT [RAD] Stat Radiology 07/27/19 23:24 Ordered - Medications Given in the ED: ED Medications Discontinued Medications Generic Name Dose Route Start Last Admin Trade Name Freq PRN Reason Stop Dose Admin Al Hydroxide/Mg Hydroxide 30 ml 07/27/19 23:25 07/27/19 23:52 Mylanta Suspension - PO 07/27/19 23:26 30 ml ONCE ONE Administration Medical Decision Making - Medical Decision Making 07/28/19 00:07 CBC CMP trop lipase UA Utox head CT, CXR Pt refused CXR, head CT EKG shows NSR, HR 84, QTc 467, no ST changes Given hydroxyzine for anxiety, maalox, simethicone for AB discomfort CBC CMP lipase UA normal, utox, trop neg --- Maddy Last is a 34yF w PMHx depression, anxiety, GERD presenting w dyspnea likely d/t panic attack, AB pain d/t reflux (hx reflux, frequent belching). No evidence of ACS with neg trop, NSR EKG. Not , no evidence of pancreatitis, tox screen negative. PE ruled out w PERC. Given hydroxyzine for anxiety, maalox, simethicone for AB discomfort. Pt breathing comfortably on room air, O2 sats wnl. Pt left AMA (refused head CT, CXR) w hydroxyzine prescription for anxiety and PCP f/u Discharge - Discharge Information Problems reviewed: Yes Clinical Impression/Diagnosis: Anxiety Condition: Good Disposition: HOME - Admission No - Additional Discharge Information Prescriptions: Hydroxyzine HCl 25 mg PO PRN #10 tablet - Follow up/Referral Referrals: DANIA CA MD [Staff Physician] - - Patient Discharge Instructions Patient Printed Discharge Instructions: DI for Anxiety -- Adult Additional Instructions: You were seen for trouble breathing. Your labs did not show anything concerning. You refused to get a chest x-ray or a head CT Please make an appointment with the referred primary care doctor regarding your visit. You can take the prescribed hydroxyzline as directed if you're having a panic attack Come back to the ED if you have worsening chest pain, cannot breathe, or lose consciousness. - Post Discharge Activity
--- NOTE | 2019-07-28 00:33 | PDOC ---
Documentation entered by Whitley Meza SCRIBE, acting as scribe for Lauren Tompkins DO. Lauren Tompkins, DO: This documentation has been prepared by the Susana galvez Adrianna, SCRIBE, under my direction and personally reviewed by me in its entirety. I confirm that the documentation accurately reflects all work, treatment, procedures, and medical decision making performed by me. Attending Attestation - Resident Resident Name: Juvenal Pickering - ED Attending Attestation I have performed the following: I have examined & evaluated the patient, The case was reviewed & discussed with the resident, I agree w/resident's findings & plan, Exceptions are as noted - HPI HPI: The patient is a 34 year old female, with a significant PMH of depression, anxiety, PUD, GERD and chronic low back pain due to multilevel lumbar disc disease from work-related injury in 11/2017, who presents to the ED for evaluation of SOB for 3 hours. Patient endorses sudden onset SOB, with heart palpitation and diffuse abdominal pain. Patient got anxious while waiting for a cab and syncopized. She reports LOC and hitting her head on the ground. Allergies: NKA, NKDA Surgical History: None reported Social History: Current smoker PCP: Dr. Mack Site Supervising Technical Operator: Dr. Reis - Physicial Exam PE: Constitutional: +Burping. +Anxious appearing and notes she currently feels anxious. Awake, alert, oriented. Head: Normocephalic. Atraumatic Eyes: PERRL. EOMI. Conjunctivae are not pale. ENT: Mucous membranes are moist and intact. Posterior pharynx without exudates or erythema. Uvula midline. Neck: Supple. Full ROM. No lymphadenopathy. Cardiovascular: Regular rate. Regular rhythm. S1, S2 regular. Distal pulses are 2+ and symmetric. Pulmonary/Chest: No evidence of respiratory distress. Clear to auscultation bilaterally No wheezing, rales or rhonchi. Abdominal: Soft and non-distended. There is no tenderness. No rebound, guarding or rigidity. No organomegaly. No palpable masses. Good bowel sounds. Back: No CVA tenderness. Musculoskeletal: No edema. No cyanosis. No clubbing. Full range of motion in all extremities. Nocalf tenderness. Radial/pedal pulses are intact and 2+ bilaterally Skin: Skin is warm and dry. No petechiae. No purpura. Neurological: Alert and oriented to person, place, and time. Cranial nerves II -XII are grossly intact. Normal speech. Strength is grossly symmetric. No sensory deficits. Psychiatric: Good eye contact. Normal interaction, affect and behavior. - Medical Decision Making 07/28/19 00:28 I, Dr. Lauren Tompkins, DO, attest that this document has been prepared under my direction and personally reviewed by me in its entirety. I further attest, that it accurately reflects all work, treatment, procedures and medical decision -making performed by me. a/p: 34yo female with hx of anxiety with sob today. -pt states she was yelling and arguing with her ex boyfriend when she started to feel sob and anxious -pt states she became numb all over and then called 911 -states she has a hx of epigastric pain - seen by Chato, had EGD that did not show acute ulcers about a year ago -states she developed upper abd pain -similar to her acid reflux and then with the pain, sob, and anxiety she "passed out" -states she hit her head -states she passed out 4more times but was caught by EMS -pt denies cp -pt anxious upon exam -will send labs, head ct, ekg, cxr -will give gi meds for acid reflux -PERC neg -will monitor and reassess 07/28/19 00:[address] 07/28/19 02:06 trop neg pending medications 07/28/19 02:17 pt refusing cxr 07/28/19 02:45 pt pending medication and re-eval, but refusing head ct and cxr will need to sign out AMA Heart Score/ECG Review - ECG Intrepretation Comment:: 07/28/19 01:30 sinus at 84, nl axis, nl interval, no acute st/t wave findings
[2019-07-28 01:28] LABS: BASO % 0.4 % (0-2.0); EOS % 0.5 % (0-4.5); HEMOGLOBIN 12.2 GM/dL (10.7-15.3); LYMPH % 33.6 % (8-40); MCHC 34.8 g/dl (32.0-36.0); MEAN CELL VOLUME 86.3 fl (80-96); MEAN PLT VOLUME 7.4 fl (7.5-11.1); MONO % 5.3 % (3.8-10.2); NEUT % 60.2 % (42.8-82.8); PLATELET COUNT 318 K/MM3 (134-434); RBC 4.05 M/mm3 (3.60-5.2); RDW 13.9 % (11.6-15.6); WHITE BLOOD COUNT 10.2 K/mm3 (4.0-10.0)
[2019-07-28 01:48] LABS: COCAINE, UR NEGATIVE ng/ml (CUTOFF=300); METHADONE, UR NEGATIVE ng/ml (CUTOFF=300); OPIATES, URI NEGATIVE ng/ml (CUTOFF=300); PHENCYCLIDINE,URINE NEGATIVE ng/ml (CUTOFF=25); URINE AMPHETAMINES NEGATIVE ng/ml (CUTOFF=500); URINE BARBITURATES NEGATIVE ng/ml (CUTOFF=200); URINE BENZODIAZEPINES NEGATIVE ng/ml (CUTOFF=200)
[2019-07-28 02:02] LABS: ALBUMIN 4.1 g/dl (3.4-5.0); ALK PHOS 71 U/L (45-117); ANION GAP 11 MMOL/L (8-16); BILIRUBIN,TOTAL 0.6 mg/dL (0.2-1); BLOOD UREA NITROGEN 9.8 mg/dL (7-18); CALCIUM 8.6 mg/dL (8.5-10.1); CHLORIDE 108 mmol/L (98-107); CO2 21 mmol/L (21-32); CREATININE 0.8 mg/dL (0.55-1.3); GLUCOSE,RANDOM 85 mg/dL (74-106); LIPASE 79 U/L (73-393); POTASSIUM 3.3 mmol/L (3.5-5.1); SGOT/AST 11 U/L (15-37); SGPT/ALT 13 U/L (13-61); SODIUM 140 mmol/L (136-145); TOT PROT 7.3 g/dl (6.4-8.2)
[2019-07-28] MEDS ORDERED: hydrALAZINE HCL 25 MG TABLET (FP) ONE (02:30)
--- NOTE | 2019-07-28 12:11 | EKG ---
Test Reason : Blood Pressure : / mmHG Vent. Rate : 084 BPM Atrial Rate : 084 BPM P-R Int : 116 ms QRS Dur : 088 ms QT Int : 396 ms P-R-T Axes : 045 009 017 degrees QTc Int : 467 ms NORMAL SINUS RHYTHM NORMAL ECG WHEN COMPARED WITH ECG OF 31-OCT-2018 08:36, NONSPECIFIC T WAVE ABNORMALITY NO LONGER EVIDENT IN ANTERIOR LEADS Confirmed by HARRIS TREVINO, JUDITH ([id number]) on 07/28/2019 12:11:25 PM Referred By: Confirmed By:JUDITH IGLESIAS MD
== END 2019-07-28 05:00 | disposition home or self-care (01) ==
LOC: JER 22:33
DX: F41.8 Other specified anxiety disorders (principal); K21.9 Gastro-esophageal reflux disease without esophagitis
CPT/HCPCS: 36415; 80053; 80307; 83690; 84484; 84702; 85025; 93005; 93010; 99283-25

== ENCOUNTER 2019-10-11 08:28 | Emergency (ER) | payer OTHER ==
[2019-10-11 08:39] VITALS: TEMP 98.1; BMI 24.0
--- NOTE | 2019-10-11 08:41 | PDOC ---
History of Present Illness - General Chief Complaint: Colic Stated Complaint: BURPING Time Seen by Provider: 10/11/19 08:41 History Source: Patient Exam Limitations: No Limitations - History of Present Illness Initial Comments: 10/11/19 08:42 Maddy Last is a 34yF w PMHx depression, anxiety, GERD presenting w epigastric pain and belching. Last night, sudden onset moderate epigastric pain radiating up to sternum, headache, nausea after eating tomato sauce and baking soda. Denies alcohol yesterday, illicit drugs. Was evaluated at [facility] at 5a this morning, negative workup, given protonix, 1L NS, maalox with temporary relief. Evaluated by Dr Chato LOGAN in past, full workup including EGD revealed inflammed bowels 2/2 poor diet. Not compliant w meds including protonix, does not take meds for anxiety. Denies fever, SOB, diarrhea/constipation, urinary symptoms. After pt told + result, pt endorses miscarriage yesterday after 6wk , no f/u No PCP Past History - Past Medical History Allergies/Adverse Reactions: Allergies Allergy/AdvReac Type Severity Reaction Status Date / Time No Known Allergies Allergy Verified 10/11/19 08:39 Home Medications: Ambulatory Orders Cyclobenzaprine HCl [Flexeril -] 10 mg PO HS #10 tablet 07/01/19 Ibuprofen 600 mg PO Q6H #30 tablet 07/01/19 Hydroxyzine HCl 25 mg PO PRN #10 tablet 07/28/19 COPD: No DVT: No GI Disorders: Yes (GERD) - Immunization History Immunization Up to Date: Yes - Psycho Social/Smoking Cessation Hx Smoking Status: Yes Smoking History: Current every day smoker Have you smoked in the past 12 months: Yes Number of Cigarettes Smoked Daily: 3 Information on smoking cessation initiated: No Hx Alcohol Use: Yes Drug/Substance Use Hx: No Substance Use Type: Alcohol Review of Systems - Review of Systems Constitutional: No: Chills, Fever HEENTM: No: Eye Pain, Nose Pain, Throat Pain, Mouth Pain Respiratory: Yes: Cough (belching). No: Shortness of Breath Cardiac (ROS): Yes: Chest Pain. No: Palpitations, Syncope ABD/GI: Yes: Nausea, Indigestion. No: Abdominal Distended, Constipated, Diarrhea, Vomiting : No: Burning, Dysuria, Hematuria Musculoskeletal: No: Back Pain, Joint Pain Integumentary: No: Bruising, Flushing, Lesions Neurological: Yes: Headache. No: Seizure, Tingling Psychiatric: No: Anxiety, Depression Endocrine: No: Excessive Sweating, Flushing, Intolerance to Cold, Intolerance to Heat Hematologic/Lymphatic: No: Anemia, Blood Clots *Physical Exam - Vital Signs Last Vital Signs Temp Pulse Resp BP Pulse Ox 98.1 F 94 H 18 119/84 100 10/11/19 08:36 10/11/19 08:36 10/11/19 08:36 10/11/19 08:36 10/11/19 08:36 - Physical Exam General Appearance: Yes: Nourished, Appropriately Dressed, Mild Distress HEENT: positive: EOMI, IFRAH, Normal Voice, Hearing Grossly Normal. negative: Scleral Icterus (R), Scleral Icterus (L), Nasal Congestion, Rhinorrhea Respiratory/Chest: positive: Lungs Clear, Normal Breath Sounds. negative: Chest Tender, Respiratory Distress, Crackles, Rales, Rhonchi, Stridor, Wheezing Cardiovascular: positive: Regular Rhythm, Regular Rate, S1, S2. negative: Edema , Murmur Gastrointestinal/Abdominal: positive: Normal Bowel Sounds, Flat, Soft. negative : Tender, Organomegaly, Distended, Guarding, Rebound, Tenderness, Hernia, Mass Integumentary: positive: Normal Color Neurologic: positive: delicatessen department manager II-XII NML intact, Fully Oriented, Alert, Normal Response, Responsive. negative: Normal Mood/Affect (anxious, pressured speech) , Sensory Deficit, Confused, Disoriented ED Treatment Course - LABORATORY CBC & Chemistry Diagram: 10/11/19 09:20 10/11/19 09:20 Medical Decision Making - Medical Decision Making 10/11/19 09:29 CBC CMP lipase HCG T&S pepcid, maalox, tylenol, zofran EKG shows NSR, HR 77, QTc 482, no ST changes K 3.1 US shows no /products of conception, stable L dermoid cyst [id number] --- Maddy Last is a 34yF w PMHx depression, anxiety, GERD presenting w epigastric pain and belching 2/2 miscarriage (no fetus or products of conception on US), anxiety, and GERD. Low concern for ACS (NSR EKG) vs pancreatitis (normal lipase) vs hyperthyroidism (normal TSH) Given pepcid, maalox, tylenol, zofran, hydroxyzine. B-HCG 178, stable L dermoid cyst on US Pt resting comfortably in bed until provider steps into room, pt begins actively belching and burping DC home w referred PCP/OBGYN f/u for dermoid cyst, ED f/u for HCG repeat Discharge - Discharge Information Problems reviewed: Yes Clinical Impression/Diagnosis: Anxiety, , Dermoid cyst GERD (gastroesophageal reflux disease) Qualifiers: Esophagitis presence: without esophagitis Qualified Code(s): K21.9 - Gastro- esophageal reflux disease without esophagitis Condition: Improved Disposition: HOME - Admission No - Follow up/Referral Referrals: Idris Montoya MD [Staff Physician] - Evette Montesinos MD [Staff Physician] - - Patient Discharge Instructions Patient Printed Discharge Instructions: DI for Miscarriage, DI for Gastroesophageal Reflux Disease (GERD) Additional Instructions: You were seen for abdominal pain and belching. Your labs showed that you had a miscarriage and a left dermoid cyst. You were given medication for your symptoms Please follow up with the referred primary care doctor and OBGYN Dr Montesinos regarding your symptoms. You can take Pepcid if you continue to belch. Do not drink alcohol or eat spicy/ fatty/fried/acidic foods. Come back to the ED on Oct 15 and to recheck your hormone. Come back immediately if you cannot breathe, vomit blood, or lose consciousness. - Post Discharge Activity
[2019-10-11] MEDS ORDERED: ONDANSETRON 4 MG/2 ML VIAL IVPUSH ONE (09:09)
[2019-10-11] MEDS ORDERED: MAG HYDROX/AL HYDROX/SIMETH -MYLANTA- ORAL SUSPENSION PO ONE (09:09)
[2019-10-11] MEDS ORDERED: ACETAMINOPHEN 1000 MG/100 ML VIAL (NON FORMULARY) IVPB ONE (09:09)
[2019-10-11] MEDS ORDERED: FAMOTIDINE 20 MG/50 ML IVPB 20 MG/50 ML MG IVPB ONE ×2 (09:09→09:34)
[2019-10-11] MEDS ORDERED: ACETAMINOPHEN INJECTION 100 ML IVPB ONE (09:21)
[2019-10-11] MEDS ORDERED: MAG HYDROX/AL HYDROX/SIMETH 30 ML UNIT-DOSE CUP ONE (09:21)
[2019-10-11] MEDS ORDERED: ONDANSETRON 4 MG/2 ML VIAL ONE (09:22)
[2019-10-11] MEDS ORDERED: METOCLOPRAMIDE HCL INJECTION 10 MG/2 ML VIAL ONE (09:35)
[2019-10-11 09:55] LABS: BASO % 0.4 % (0-2.0); EOS % 1.1 % (0-4.5); HEMATOCRIT 34.9 % (32.4-45.2); LYMPH % 41.9 % (8-40); MCH 30.1 pg (25.7-33.7); MCHC 34.2 g/dl (32.0-36.0); MEAN PLT VOLUME 7.2 fl (7.5-11.1); NEUT % 51.6 % (42.8-82.8); PLATELET COUNT 478 K/MM3 (134-434); RBC 3.97 M/mm3 (3.60-5.2); RDW 14.2 % (11.6-15.6); WHITE BLOOD COUNT 10.4 K/mm3 (4.0-10.0)
--- NOTE | 2019-10-11 09:55 | PDOC ---
Documentation entered by Tayla Meza SCRIBE, acting as scribe for Lauren Tompkins DO. Lauren Tompkins DO: This documentation has been prepared by the Susana galvez Brenda, SCRIBE, under my direction and personally reviewed by me in its entirety. I confirm that the documentation accurately reflects all work, treatment, procedures, and medical decision making performed by me. Attending Attestation - Resident Resident Name: LadanJuvenal - ED Attending Attestation I have performed the following: I have examined & evaluated the patient, The case was reviewed & discussed with the resident, I agree w/resident's findings & plan, Exceptions are as noted - HPI HPI: 10/11/19 09:36 The patient is a 34 year old female, with a significant PMH of anxiety, depression and GERD (follows with [facility], has gotten EGD and Colonoscopy with revealed inflamed bowels) who presents to the emergency department with epigastric burning that radiates to her neck, which she associates with eating tomato sauce last night. Patient reports going to [facility] today and had a negative workup, and were given protonix and maalox with temporary relief. Patient reports being noncompliant with protonix, only using it as needed. The patient denies chest pain, shortness of breath, and dizziness. Denies fever , chills, vomiting, diarrhea and constipation. Denies any urinary symptoms. Allergies: NKA Surgical History: None reported Social History: Current smoker PCP: Dr. Mack - Physicial Exam PE: 10/11/19 09:31 GENERAL: (+) Very anxious. Awake, alert, and fully oriented, in no acute distress HEAD: No signs of trauma EYES: PERRLA, EOMI, sclera anicteric, conjunctiva clear ENT: Auricles normal inspection, hearing grossly normal, nares patent, oropharynx clear without exudates. Moist mucosa NECK: Normal ROM, supple, no lymphadenopathy, JVD, or masses LUNGS: Breath sounds equal, clear to auscultation bilaterally. No wheezes, and no crackles HEART: Regular rate and rhythm, normal S1 and S2, no murmurs, rubs or gallops ABDOMEN: Soft, nontender, normoactive bowel sounds. No guarding, no rebound. No masses EXTREMITIES: Normal range of motion, no edema. No clubbing or cyanosis. No cords, erythema, or tenderness NEUROLOGICAL: Cranial nerves II through XII grossly intact. Normal speech, normal gait SKIN: Warm, Dry, normal turgor, no rashes or lesions noted. - Medical Decision Making 10/11/19 09:36 The patient is a 34 year old female, with a significant PMH of anxiety, depression and GERD with epigastric pain and burning sensation from her stomach to her throat after eating tomato sauce yesterday -pt has seen dr. carter -pt has been noncompliant with protonix at home -pt has not been watching her diet -pt seen at [facility] earlier today and given protonix -will send labs, ekg, gi cocktail -pt also very anxious- will monitor and reassess 10/11/19 10:53 preg + now states had a miscarriage yesterday will send beta hcg type and screen tvus to further eval 10/11/19 12:11 dermoid cyst on L ovary no iup pending beta and type and screen 10/11/19 12:43 beta 178 10/11/19 13:05 O+ on type and screen feels better stable for dc to home Heart Score/ECG Review - ECG Intrepretation Comment:: 10/11/19 09:55 sinus at 77, nl axis, nl interval, no acute st/t wave findings
[2019-10-11 10:22] LABS: ALBUMIN 3.8 g/dl (3.4-5.0); BILIRUBIN,TOTAL 0.8 mg/dL (0.2-1); CALCIUM 8.7 mg/dL (8.5-10.1); CREATININE 0.8 mg/dL (0.55-1.3); POTASSIUM 3.1 mmol/L (3.5-5.1); TOT PROT 7.3 g/dl (6.4-8.2)
[2019-10-11] MEDS ORDERED: POTASSIUM CHLORIDE TABS 20 MEQ TABLET.ER (FP) PO ONE ×2 (11:01→11:37)
[2019-10-11] MEDS ORDERED: hydrOXYzine PAMOATE 50 MG CAPSULE (FP) PO ONE (13:07)
[2019-10-11] MEDS ORDERED: hydrOXYzine PAMOATE 50 MG CAPSULE (FP) ONE (13:30)
[2019-10-11 13:38] VITALS: BP 112/82; PULSE 92
--- NOTE | 2019-10-11 15:46 | EKG ---
Test Reason : Blood Pressure : / mmHG Vent. Rate : 077 BPM Atrial Rate : 077 BPM P-R Int : 122 ms QRS Dur : 088 ms QT Int : 426 ms P-R-T Axes : 042 016 010 degrees QTc Int : 482 ms NORMAL SINUS RHYTHM PROLONGED QT ABNORMAL ECG WHEN COMPARED WITH ECG OF 28-JUL-2019 01:10, NO SIGNIFICANT CHANGE WAS FOUND Confirmed by MD Boland Daniel ([id number]) on 10/11/2019 3:46:14 PM Referred By: Confirmed By:Shan Boland MD
== END 2019-10-11 14:04 | disposition home or self-care (01) ==
LOC: JER 08:28
PROC: 3E033GC Introduction of Other Therapeutic Substance into Peripheral Vein, Percutaneous Approach (ICD-10-PCS; principal; 2019-10-11)
PROC: 3E033NZ Introduction of Analgesics, Hypnotics, Sedatives into Peripheral Vein, Percutaneous Approach (ICD-10-PCS; 2019-10-11)
DX: K21.9 Gastro-esophageal reflux disease without esophagitis (principal); R10.13 Epigastric pain; O03.9 Complete or unspecified spontaneous abortion without complication; E87.6 Hypokalemia; F41.8 Other specified anxiety disorders; F32.9 Major depressive disorder, single episode, unspecified; D27.1 Benign neoplasm of left ovary; F17.210 Nicotine dependence, cigarettes, uncomplicated
CPT/HCPCS: 36415; 76830-TC; 80053; 83690; 84443; 84702; 84703; 85025; 86850; 86900; 86901; 93005; 93010; 99283-25; J0131